=== PATIENT | female | born 1945 | race Caucasian/White ===

== ENCOUNTER 2016-06-24 09:50 | Day surgery (SDC) | payer OTHER ==
[~2016-06-24] VITALS: Ht 157.5 cm; Wt 68.2 kg
[2016-06-24] VITALS (8 sets, daily range): BP systolic 114–175; BP diastolic 58–92; PULSE 78–96; RESP 18–20; TEMP 97.4–98; O2SAT 93–98
[~2016-06-24 09:50] MED LIST: AMIO200T PO; COZA100T PO; GLUCTAB PO; HYDR-2768 PO; K-TA10TA5 PO; METO50TA PO; OMEP20TA PO
[2016-06-24] MEDS ORDERED: VITA10007 PO (10:24)
[2016-06-24] MEDS ORDERED: PRAD150C PO (10:24)
[2016-06-24] MEDS ORDERED: DOXY1CAP91 PO (10:24)
[2016-06-24] MEDS ORDERED: MULT-135 PO (10:24)
[2016-06-24] MEDS ORDERED: PRED10PA PO (10:24)
[2016-06-24] MEDS ORDERED: METF500T PO (10:24)
[2016-06-24] MEDS ORDERED: DIGO0.12 PO (10:24)
[2016-06-24] MEDS ORDERED: AMLO5TAB2 PO (10:24)
[2016-06-24] MEDS ORDERED: METO50TA PO (10:24)
[2016-06-24] MEDS ORDERED: PRAV10TA PO (10:24)
[2016-06-24] MEDS ORDERED: PROM6.256 PO (10:24)
[2016-06-24] MEDS ORDERED: LOSA50TA PO (10:24)
[2016-06-24] MEDS ORDERED: SODIUM CHLOR 0.9% 1000 ML INJ 1,000 ML IV SCH (10:30)
[2016-06-24] MEDS ORDERED: LIDOCAINE 1%/EPINEPHrine 1:100,000 SOLN 20 ML VIAL ONE (12:11)
[2016-06-24] MEDS ORDERED: MIDAZOLAM HCL 5 MG/5 ML VIAL ONE (12:29)
[2016-06-24] MEDS ORDERED: fentaNYL CITRATE 250 MCG/5 ML AMP ONE (12:29)
[2016-06-24] MEDS ORDERED: HYDROmorphone HCL 2 MG TAB PO PRN (13:00)
--- NOTE | 2016-06-24 13:02 | PD.RAD ---
Post Procedure Progress Note Pre Procedure Diagnosis: (1) Metastases to the liver Post Procedure Diagnosis: (1) Metastases to the liver Procedure Date: Jun 24, 2016 Supervising Radiologist: Priyank Reddy Anesthesia: Local, Conscious Sedation Plan of Activity Additional Comments: CT guided biopsy of the liver mass x 4 No bleed on follow up CT. Full report to follow See PACS Report for procedural detail/treatment Priyank Reddy MD Jun 24, 2016 13:02
--- NOTE | 2016-06-24 13:10 | RADRPT ---
EXAM DATE/TIME: 06/24/2016 12:34 [facility] COMPARISON: CT ABDOMEN W & W/O CONTRAST, May 09, 2012, 13:15. INDICATIONS : Liver mass. SEDATION TIME: 15 minutes BIOPSY SITE: Right MEDICATION(S): 1.) 3 mg midazolam (Versed) IV 2.) 150 mcg fentanyl (Sublimaze) IV DEVICE(S): 1.) 20 gauge Temno core biopsy needle MEDICAL HISTORY : Diabetes mellitus type 2. Hypertension. Chronic obstructive pulmonary disease. SURGICAL HISTORY : None. ENCOUNTER: Initial ACUITY: 1 day PAIN SCORE: 0/10 LOCATION: Right upper quadrant A total of four core specimen(s) were obtained and sent to the laboratory for pathologic evaluation. PROCEDURE: 1. CT guided liver biopsy. 2. Conscious sedation with continuous EKG and oximetry monitoring. 3. EKG and oximetry remained stable throughout the procedure. Prior to the procedure informed consent was obtained. Any appropriate prior imaging studies were rev iewed. Using automated exposure control and adjustment of the mA and/or kV according to patient size, radiat ion dose was kept as low as reasonably achievable to obtain optimal diagnostic quality images. The site was prepped in a sterile fashion. Full sterile technique was used, including cap, mask, madeline rile gloves and gown and a large sterile sheet. Hand hygiene and 2% chlorhexidine and/or betadine/al cohol prep was utilized per protocol for cutaneous antisepsis. The skin and subcutaneous tissues wer e infiltrated with local anesthetic solution. With CT guidance the previously identified target was localized. A total of 4 18 gauge core biopsies in different parts of the lesion were obtained. Adequate hemostasis was obtained with compression at the puncture site. Follow-up CT scan reveals no hemorrhage. The patient tolerated the procedure well and there were no complications. The patient was returned to the Radiology Outpatient Unit in stable condition. CONCLUSION: Uncomplicated CT guided biopsy. Priyank Reddy MD on June 24, 2016 at 13:06 Board Certified Radiologist. This report was verified electronically.
== END 2016-06-24 17:05 | disposition home or self-care (01) ==
LOC: HRAD 09:50 → HRIP 09:59 → HRAD 17:05
PROVIDERS: ATTEND Internal Medicine Hematology
DX: R16.0 Hepatomegaly, not elsewhere classified (principal); E11.9 Type 2 diabetes mellitus without complications; I10 Essential (primary) hypertension; J44.9 Chronic obstructive pulmonary disease, unspecified; C78.7 Secondary malignant neoplasm of liver and intrahepatic bile duct
CPT/HCPCS: 47000; 77012; 88307; 88313; 88341; 88342; 99151; J2250; J3010; J7030; 49180; 99152